=== PATIENT | female | born 1990 | race Hispanic/Latino ===

== ENCOUNTER 2017-07-02 19:08 | Inpatient (IN) | payer BC, MEDICAID ==
[~2017-07-02] VITALS: Ht 157.5 cm; Wt 93.0 kg
[2017-07-02] MEDS ORDERED: LACTATED RINGERS 1000ML 1,000 ML IV PRN (20:49)
[2017-07-02] MEDS ORDERED: ONDANSETRON HCL 4 MG/2 ML VIAL IVP PRN ×2 (21:00)
[2017-07-02] MEDS ORDERED: DiphenhydrAMINE HCL 50 MG/ML VIAL IVP PRN (21:00)
[2017-07-02] MEDS ORDERED: AMPICILLIN 2GM+NS 100ML 100 ML IV SCH (21:00)
[2017-07-02] MEDS ORDERED: NALOXONE HCL 0.4 MG/1 ML ML IVP PRN ×2 (21:00)
[2017-07-02] MEDS ORDERED: ONDANSETRON HCL 4 MG/2 ML 8 MG in SODIUM CHLORIDE 0.9% 50 ML IVP NR (21:00)
[2017-07-02] MEDS ORDERED: EPHEDRINE SULFATE 50 MG/ML AMPULE IVP PRN (21:00)
[2017-07-02] MEDS ORDERED: METOCLOPRAMIDE 10 MG/2 ML VIAL IVP PRN (21:00)
[2017-07-02] MEDS ORDERED: HYDROCODONE/ACETAMINOPHEN 5/325 MG TAB PO PRN ×2 (21:00)
[2017-07-02] MEDS ORDERED: PROMETHAZINE HCL 25 MG/ML 1ML AMPULE IM PRN (21:00)
[2017-07-02] MEDS ORDERED: MORPHINE SULFATE 2 MG/ML 1ML SYG IVP PRN (21:00)
[2017-07-02 21:37] LABS: HEMATOCRIT 35.2 % (36-48); MEAN CORPUSCULAR HEMOGLOBIN 32.7 pg (27.0-33.0); MEAN CORPUSCULAR HGB CONC 34.6 g/dL (32.0-36.0); MEAN CORPUSCULAR VOLUME 94.6 fL (79-99); NUCLEATED RED BLOOD CELLS 0.1 % (0.0-0.19); PLATELET COUNT (AUTO) 165 K/uL (130-400); RED BLOOD CELL COUNT(AUTO) 3.72 MIL/uL (4.00-5.50); RED CELL DISTRIBUTION WIDTH 13.3 % (11.0-15.5); WHITE BLOOD COUNT (AUTO) 9.9 K/uL (4.8-10.8)
[2017-07-02 22:33] LABS: APPEARANCE,URINE Turbid (CLEAR); BILIRUBIN,URINE Negative (NEGATIVE); COLOR,URINE Yellow (YELLOW); GLUCOSE, URINE (UA) Negative (NEGATIVE); KETONES,URINE Negative (NEGATIVE); LEUKOCYTE ESTERASE ,URINE Small (NEGATIVE); NITRATE,URINE Negative (NEGATIVE); OCCULT BLOOD,URINE Negative (NEGATIVE); PROTEIN,URINE Negative (NEGATIVE)
[2017-07-02 22:55] LABS: AMPHET/METH SCREEN,URINE NEGATIVE (NEGATIVE); BARBITURATE SCREEN, URINE NEGATIVE (NEGATIVE); BENZODIAZEPINES SCREEN,URINE NEGATIVE (NEGATIVE); CANNABINOID SCREEN,URINE NEGATIVE (NEGATIVE); COCAINE SCREEN,URINE NEGATIVE (NEGATIVE); OPIATE SCREEN,URINE NEGATIVE (NEGATIVE); PHENCYCLIDINE SCREEN,URINE NEGATIVE (NEGATIVE)
[2017-07-02 22:56] LABS: AMORPHOUS SEDIMENT,UR Many /LPF (None Seen); BACTERIA,URINE Moderate /HPF (None Seen)
[2017-07-03] MEDS: AMPICILLIN 1GM+NS 50ML 50 ML IV SCH ×3 (01:03→08:43)
[2017-07-03] MEDS ORDERED: OXYTOCIN 10 USP UNITS/ML ONE ×2 (03:56→11:19)
[2017-07-03] MEDS ORDERED: LACTATED RINGERS 1000ML 1,000 ML IV ONE ×2 (03:56→11:19)
[2017-07-03] MEDS ORDERED: OXYTOCIN 10 USP UNITS/ML 20 UNIT in LACTATED RINGERS 1000ML 1,000 ML IV SCH (04:00)
[2017-07-03] MEDS: MEPERIDINE-PF 50 MG/ML SYG IVP SCH (08:43)
[2017-07-03] MEDS: PROMETHAZINE HCL 25 MG/ML 1ML AMPULE IM SCH (08:43)
[2017-07-03] MEDS ORDERED: LIDOCAINE HCL 1% 20 ML VIAL ONE (09:43)
[2017-07-03] MEDS ORDERED: MISOPROSTOL 200 MCG TABLET ONE (10:12)
[2017-07-03] MEDS ORDERED: LANOLIN 30GM OINTMENT TP PRN (10:15)
[2017-07-03] MEDS ORDERED: ACETAMINOPHEN 325 MG TAB PO PRN (10:15)
[2017-07-03] MEDS ORDERED: MISOPROSTOL 200 MCG TABLET VG SCH (10:15)
[2017-07-03] MEDS ORDERED: MEASLES/MUMPS/RUBELLA VACCINE, LIVE 0.5 ML/VIAL SQ PRN (10:15)
[2017-07-03] MEDS ORDERED: WITCH HAZEL 1 PAD TP PRN (10:15)
[2017-07-03] MEDS ORDERED: OXYTOCIN-LR 20 UNITS/1000 ML 1,000 ML IV SCH (10:15)
[2017-07-03] MEDS ORDERED: DIPH,PERTUSS(ACELL),TET VAC/PF 0.5 ML VIAL IM PRN (10:15)
[2017-07-03] MEDS ORDERED: ACETAMINOPHEN-CODEINE 300/30MG TAB PO PRN (10:15)
[2017-07-03 12:10] VITALS: BP 111/68
[2017-07-03] MEDS: IBUPROFEN 600 MG TABLET PO PRN ×2 (14:33→21:39)
[2017-07-03 15:43] VITALS: BP 116/62
[2017-07-03 19:32] VITALS: BP 98/52
[2017-07-03] MEDS ORDERED: PREN-66 PO (20:03)
[2017-07-03] MEDS: DOCUSATE SODIUM 100 MG CAP PO SCH (21:39)
[2017-07-03 23:08] VITALS: BP 108/69
[2017-07-04 03:25] VITALS: BP 98/59
[2017-07-04 05:35] LABS: HEMATOCRIT 32.2 % (36-48); MEAN CORPUSCULAR HEMOGLOBIN 32.7 pg (27.0-33.0); MEAN CORPUSCULAR HGB CONC 34.7 g/dL (32.0-36.0); MEAN CORPUSCULAR VOLUME 94.1 fL (79-99); PLATELET COUNT (AUTO) 154 K/uL (130-400); RED BLOOD CELL COUNT(AUTO) 3.43 MIL/uL (4.00-5.50); RED CELL DISTRIBUTION WIDTH 13.2 % (11.0-15.5); WHITE BLOOD COUNT (AUTO) 12.4 K/uL (4.8-10.8)
[2017-07-04 07:30] LABS: HEPATITIS Bs ANTIGEN SCREEN P Negative (Negative)
[2017-07-04 07:51] VITALS: BP 99/62
[2017-07-04] MEDS: PROMETHAZINE HCL 25 MG/ML 1ML AMPULE IM SCH (08:30)
[2017-07-04] MEDS: DOCUSATE SODIUM 100 MG CAP PO SCH ×2 (09:19→20:46)
[2017-07-04] MEDS: IBUPROFEN 600 MG TABLET PO PRN ×2 (09:21→18:25)
[2017-07-04 12:22] VITALS: BP 109/69
[2017-07-04 16:07] VITALS: BP 119/73
[2017-07-04 19:39] VITALS: BP 112/59
[2017-07-04 23:10] VITALS: BP 103/50
[2017-07-05 03:08] VITALS: BP 120/58
[2017-07-05] MEDS: IBUPROFEN 600 MG TABLET PO PRN ×2 (03:27→09:47)
[2017-07-05 07:49] VITALS: BP 99/57
[2017-07-05] MEDS: PROMETHAZINE HCL 25 MG/ML 1ML AMPULE IM SCH (08:30)
[2017-07-05] MEDS: MEPERIDINE-PF 50 MG/ML SYG IVP SCH (08:30)
[2017-07-05] MEDS: DOCUSATE SODIUM 100 MG CAP PO SCH (09:45)
[2017-07-05 11:41] VITALS: BP_SYST 102; BP_SYST 103; BP_DIAS 56; BP_DIAS 62
== END 2017-07-05 13:30 | disposition home or self-care (01) | DRG 775 ==
LOC: LDH 19:32 → WSH 07-03 12:10
PROVIDERS: ADMIT Obstetrics & Gynecology; ATTEND Obstetrics & Gynecology
PROC: 10E0XZZ Delivery of Products of Conception, External Approach (ICD-10-PCS; principal; 2017-07-02)
PROC: 10907ZC Drainage of Amniotic Fluid, Therapeutic from Products of Conception, Via Natural or Artificial Opening (ICD-10-PCS; 2017-07-02)
PROC: 3E0P3VZ Introduction of Hormone into Female Reproductive, Percutaneous Approach (ICD-10-PCS; 2017-07-02)
PROC: 3E0234Z Introduction of Serum, Toxoid and Vaccine into Muscle, Percutaneous Approach (ICD-10-PCS; 2017-07-03)
DX: O99.824 Streptococcus B carrier state complicating childbirth (principal); Z23 Encounter for immunization; Z37.0 Single live birth; Z3A.39 39 weeks gestation of pregnancy; Z86.19 Personal history of other infectious and parasitic diseases
CPT/HCPCS: 36415; 80305; 81001; 85027; 86592; 86850; 86900; 86901; 87340; 90715; J0290; J2175; J2550; J2590; J7120

== ENCOUNTER 2018-04-14 08:59 | Observation (INO) | payer BC, MEDICAID ==
[~2018-04-14 08:59] MED LIST: PREN-66 PO
[2018-04-14] MEDS ORDERED: LACTATED RINGERS 1000ML IV SCH (10:30)
[2018-04-14 11:06] LABS: APPEARANCE,URINE Cloudy (CLEAR); BILIRUBIN,URINE Negative (NEGATIVE); COLOR,URINE Yellow (YELLOW); GLUCOSE, URINE (UA) Negative (NEGATIVE); KETONES,URINE Negative (NEGATIVE); LEUKOCYTE ESTERASE ,URINE Small (NEGATIVE); NITRATE,URINE Negative (NEGATIVE); OCCULT BLOOD,URINE Negative (NEGATIVE); PROTEIN,URINE POS 1+ (NEGATIVE)
[2018-04-14 11:30] LABS: BACTERIA,URINE Rare /HPF (None Seen); RBC,URINE 0-1 /HPF (0-1); SQUAMOUS EPITHELIAL CELL,UR Many /HPF (0-2)
[2018-04-14] MEDS ORDERED: CEFTRIAXONE SODIUM 1 GM IVP SCH (11:45)
== END 2018-04-14 12:08 | disposition home or self-care (01) ==
LOC: LDH 08:59
PROVIDERS: ADMIT Obstetrics & Gynecology; ATTEND Obstetrics & Gynecology
DX: O62.9 Abnormality of forces of labor, unspecified (principal); Z3A.33 33 weeks gestation of pregnancy
CPT/HCPCS: 81001; 87088; 96374; A4218; G0378 ×4; J0696; J7120; 96360

== ENCOUNTER 2018-04-23 18:14 | Emergency (ER) | payer BC, MEDICAID ==
[2018-04-23 19:11] LABS: BASOPHILS % (AUTO) 0.7 % (0.0-5.0); EOSINOPHILS % (AUTO) 0.7 % (0.0-8.0); HEMATOCRIT 34.5 % (36-48); MEAN CORPUSCULAR VOLUME 94.1 fL (79-99); NEUTROPHILS % (AUTO) 67.6 % (40.0-77.0); PLATELET COUNT (AUTO) 162 K/uL (130-400); RED BLOOD CELL COUNT(AUTO) 3.67 MIL/uL (4.00-5.50); RED CELL DISTRIBUTION WIDTH 13.3 % (11.0-15.5); WHITE BLOOD COUNT (AUTO) 7.9 K/uL (4.8-10.8)
[2018-04-23 19:17] LABS: APPEARANCE,URINE Cloudy (CLEAR); BILIRUBIN,URINE Negative (NEGATIVE); COLOR,URINE Yellow (YELLOW); GLUCOSE, URINE (UA) Negative (NEGATIVE); KETONES,URINE Negative (NEGATIVE); LEUKOCYTE ESTERASE ,URINE Small (NEGATIVE); NITRATE,URINE Negative (NEGATIVE); OCCULT BLOOD,URINE Negative (NEGATIVE); PH,URINE 6.5 (5.0-8.0); PROTEIN,URINE Trace (NEGATIVE)
[2018-04-23 19:26] LABS: BACTERIA,URINE Rare /HPF (None Seen); RBC,URINE None Seen /HPF (0-1); SQUAMOUS EPITHELIAL CELL,UR 30-50 /HPF (0-2); WBC,URINE 0-1 /HPF (0-1)
[2018-04-23 19:29] LABS: CREATININE 0.5 mg/dL (0.5-1.5)
[2018-04-23 19:35] LABS: ALBUMIN 2.5 g/dL (3.5-5.0); BILIRUBIN,TOTAL 0.2 mg/dL (0.2-1.0); TOTAL PROTEIN, SERUM 7.1 g/dL (6.0-8.3)
== END 2018-04-23 21:03 | disposition home or self-care (01) ==
LOC: EDH 18:14
DX: O99.513 Diseases of the respiratory system complicating pregnancy, third trimester (principal); J06.9 Acute upper respiratory infection, unspecified; Z3A.35 35 weeks gestation of pregnancy
CPT/HCPCS: 36415; 80053; 81001; 85025; 87804; 87880

== ENCOUNTER 2019-06-08 13:15 | Emergency (ER) | payer BC, MEDICAID, OTHER ==
[2019-06-08] MEDS ORDERED: IPRATROPIUM/ALBUTEROL SULFATE 3 ML SOLUTION IH ONE (14:57)
[2019-06-08 15:13] LABS: RAPID GROUP A STREP NEGATIVE (NEGATIVE)
== END 2019-06-08 15:48 | disposition home or self-care (01) ==
LOC: EDH 13:15
DX: J06.9 Acute upper respiratory infection, unspecified (principal)
CPT/HCPCS: 81025; 87804; 87880; 94640